=== PATIENT | male | born 1960 | race African-American/Black ===

== ENCOUNTER 2016-11-22 02:21 | Observation (INO) ==
[2016-11-22] MEDS ORDERED: SODIUM CHLORIDE 0.9% 1,200 ML IV ONE (02:54)
[2016-11-22] MEDS ORDERED: PIPERACILLIN/TAZOBACTAM 3,375 MG in SODIUM CHLORIDE 0.9% 100 ML IV STA (02:54)
[2016-11-22] MEDS ORDERED: SODIUM CHLORIDE 0.9% 1,000 ML IV SCH (03:00)
[2016-11-22] MEDS ORDERED: ACETAMINOPHEN 325 MG/10.15 ML UDCUP PO STA (03:27)
[2016-11-22] MEDS ORDERED: PIPERACILLIN/TAZOBACTAM 3,375 MG VIAL IV ONE (03:43)
[2016-11-22] MEDS ORDERED: ACETAMINOPHEN 325 MG/10.15 ML UDCUP ONE (03:44)
[2016-11-22 03:55] LABS: Basophils % 0.1 % (0.0-0.8); Hematocrit 27.6 VOL% (42.0-52.0); Hemoglobin 9.1 GM/DL (14.0-18.0); Immature Granulocytes % 0.4 %; Immature Granulocytes Absolute 0.04 #; Lymphocytes # 0.6 10*3/uL (1.4-4.0); Mean Corpuscular Hemoglobin 28 PG (27-34); Mean Corpuscular Volume 83.9 FL (87-102); Mean Platelet Volume 10.7 FL (9.6-12.0); Monocytes # 0.1 10*3/uL (0.11-0.8); Monocytes % 1.4 % (1.7-12.7); NRBC # 0.02 10*3/uL; Neutrophils # 9.2 10*3/uL (1.4-7.4); Neutrophils % 92.1 % (38.7-73.9); Platelet Count 199 T/CUMM (130-400); Red Blood Count 3.29 MC/CUMM (3.8-5.5); Red Cell Distribution Width 19.9 % (9.3-17.3)
[2016-11-22 04:16] LABS: Albumin 2.9 G/DL (3.4-5.0); Bilirubin,Total 1.4 MG/DL (0.2-1.0); Calcium 9.1 MG/DL (8.5-10.1); Osmolality,Calculated 282.4 MOS/KG (273-304); Potassium 3.4 MMOL/L (3.5-5.1); Total Protein 7.3 G/DL (6.4-8.3)
[2016-11-22 04:17] LABS: Lactic Acid 2.3 MMOL/L (0.4-2.0)
[2016-11-22 04:18] LABS: Band Neutrophils 8 % (0-10); Lymphocytes 9 % (20-55); Segmented Neutrophils 82 % (50-85)
[2016-11-22 04:19] LABS: Platelet Estimate Normal; Target Cells 1+
[2016-11-22 04:21] LABS: Elliptocytes Few; Helmet Cells Few; Hypochromasia 1+
[2016-11-22 04:22] LABS: Total Cells Counted 100
--- NOTE | 2016-11-22 05:14 | Emergency Department Note ---
Becky Joya Gwan, am scribing for, and in the presence of, Herve Ordoñez MD 02 :49. Smita Joya Charles R, MD, personally performed the services described in this documentation, ascribed by Cristhian Pena in my presence, and it is both accurate and complete . Arrival - Arrival Mode of Arrival: Ambulatory Source: Patient, Family, Old Records Reviewed, RN Notes Reviewed Time Seen by Provider: 11/22/16 02:26 - History of Present Illness HPI Narrative: Patient is a 56 y/o male with a PMHx of Stage 4 Colon CA who presents to the ED for further evaluation of fever. Patient is accompanied by family member who confirms that patient is actively on Hospice Care. Family continued to note that she was concerned about the patient's fever and she alerted Hospice Nurse who then instructed the family to report to ED. Family confirmed that patient is followed by Oncologist Dr. Lamb at [facility] and that he was last seen in [place] 3 weeks ago. Patient stated that he last received chemotherapy 2-3 weeks ago and that he was advised to stop chemotherapy. Family was educated on the ramifications of Hospice Care and that if the patient is admitted into the hospital then his Hospice Care will be revocated. Onset (ago): day(s) Consistency: constant Severity: severe Allergies/Adverse Reactions: Allergies Allergy/AdvReac Type Severity Reaction Status Date / Time No Known Allergies Allergy Unverified 10/15/16 21:15 Home Medications: Home Medications Medication Instructions Recorded Confirmed Type Unable To Obtain [Unable to Obtain] 10/15/16 11/22/16 History Review of System - Review of System 12 point system: reviewed and no additional remarkable complaints except as stated - Review of System Constitutional: Present: as per HPI, chills, fever Eyes: Absent: discharge, pain Respiratory: Absent: cough, wheezing Cardiovascular: Absent: chest pain, palpitations, edema Medical,Surgical,& Family Hx - Medical History Cardio: History of: Hypertension - Surgical History Abdominal Surgeries: Surgical HX of: Abdominal Surgery - Social History Smoking Status: Never smoker Exam Vital Signs: Vital Signs Temperature 103.2 F H 11/22/16 02:21 Pulse Rate 144 H 11/22/16 02:21 Respiratory Rate 26 H 11/22/16 02:21 Blood Pressure 130/88 11/22/16 02:21 O2 Sat by Pulse Oximetry 94 L 11/22/16 02:21 - General General appearance: alert, other (Patient appears terminally ill; global atrophy present) - Head Head exam: Absent: normal inspection - Eye Eye exam: Present: other (Bilateral sunken orbits) - ENT ENT exam: Present: mucous membranes dry - Neck Neck exam: Absent: full ROM - Chest Chest inspection: Present: symmetric chest wall rise - Cardiovascular Cardiovascular exam: Present: tachycardia - Abdominal Exam Abdominal exam: Present: other (Feeding tube present; Patent colostomy bag present) - Extremities Exam Extremities exam: Absent: full ROM - Back Exam Back exam: Absent: full ROM - Neurological Exam Neurological exam: Present: alert - Psychiatric Psychiatric exam: Present: other (Confused) - Skin Skin exam: Present: other (Patient has the appearece of being terminally ill with global atrophy present. ) Course Course Narrative: Patient will be admitted for comfort care measures for 24 hours given IV antibiotics to treat possible urinary tract infection fever and possibly right upper lobe aspiration pneumonia - Consultations Consultation #1: Hospitalist will admit patient Time: 06:14 Results - Labs CBC & BMP: 11/22/16 03:18 11/22/16 03:18 Lab Results: I have reviewed the patients labs Labs: Laboratory Tests 11/22/16 11/22/16 11/22/16 03:17 03:18 03:18 WBC 10.0 RBC 3.29 L Hgb 9.1 L Hct 27.6 L MCV 83.9 L RDW 19.9 H Plt Count 199 Neut % (Auto) 92.1 H Lymph % (Auto) 6.0 L [place] % (Auto) 1.4 L Neut # (Auto) 9.2 H Lymph # (Auto) 0.6 L [place] # (Auto) 0.1 L Lymphocytes 9 L Monocytes 1 L Sodium 140 Potassium 3.4 L Chloride 100 Carbon Dioxide 32 BUN 22 H Creatinine 0.60 L BUN/Creatinine Ratio 36.00 H Glucose 121 H Lactic Acid 2.3 H Magnesium 1.9 Total Bilirubin 1.40 H Alkaline Phosphatase 144 H Albumin 2.9 L Globulin 4.4 H Albumin/Globulin Ratio 0.6 L Critical Care Time Critical Care Time: Yes Total Critical Care Time: 60 Disposition Clinical Impression: Sepsis, Metastatic colon cancer, Failure to thrive, Debility, Fever, Possible aspiration pneumonia Case discussed with: patient, patient's family Disposition: Still a Patient Condition: Guarded Time of Disposition: 06:15
[2016-11-22 05:23] LABS: Apearance,Urine Slightly Hazy (Clear); Bilirubin,Urine Negative (Negative); Blood, Urine Small mg/dL (Negative); Glucose,Urine (UA) Negative (Negative); Hyaline Casts,Urine 1 /LPF (0-3); Ketones,Urine 20 mg/dL (Negative); Mucus,Urine Occasional /LPF (Occasional); Nitrite,Urine Negative (Negative); Protein,Urine 100 MG/DL; RBC,Urine 5 /HPF (0-4); Squamous Epithelial Cell,Urine Occasional /HPF (0-10); Urine Color Yellow (Yellow); Urine Specific Gravity 1.017 (1.001-1.035); WBC,Urine 4 /HPF (0-6)
--- NOTE | 2016-11-22 06:21 | Hospitalist History & Physical ---
Assessment and Plan (1) Dehydration Status: Acute Current Visit: Yes (2) Debility Status: Acute Current Visit: Yes (3) Failure to thrive Status: Acute Current Visit: Yes (4) Fever Status: Acute Current Visit: Yes (5) Sepsis Status: Acute Assessment and plan: Plan for this patient will be admitting him to our service. We will continue with IV antibiotics. Patient can have a clear liquid diet but family reports that it has to be suctioned out after he drinks it. IV fluids will be continued. Our plan is to discharge him tomorrow after 24 hours of IV fluids and antibiotics. Patient is a DNR. Current Visit: Yes History of Present Illness Chief complaint: Fever and decreased blood pressure History of present illness: Mr. Barakat is a 56 year old male with past medical history of stage IV colon cancer presents to our ER tonight. Patient is on hospice. He is no longer receiving active treatment. But he was brought up here at the recommendation of his hospice provider when he was having fever and low blood pressure. Patient had a workup in the emergency room and it was felt that he had a pneumonia. I was consulted to do an observation admit only. Home Medications Medication Instructions Recorded Confirmed Type Unable To Obtain [Unable to Obtain] 10/15/16 11/22/16 History Allergies Allergy/AdvReac Type Severity Reaction Status Date / Time No Known Allergies Allergy Unverified 10/15/16 21:15 Medical,Surgical,& Family Hx - Medical History Cardio: History of: Hypertension Gastrointestinal: History of: Gastrointestinal Cancer (Stage IV Colon CA with liver mets) - Surgical History Abdominal Surgeries: Surgical HX of: Abdominal Surgery - Family History Family History: Reports;: Family Cancer - Social History Smoking Status: Never smoker Frequency of Alcohol Use: None Type of Drug Use: None 12 point system: reviewed and no additional remarkable complaints except as stated Exam - Constitutional Vitals: Period Temp Pulse Resp BP Sys/Griffin Pulse Ox Last 24 Hr 103.2 F-103.2 F 144-144 26-26 130-130/88-88 94 - General General appearance: alert, other patient is cachectic and appears terminally ill - Head Head exam: Absent: normal inspection - Eye Eye exam: Present: other (Bilateral sunken orbits) - ENT ENT exam: Present: mucous membranes dry - Neck Neck exam: Absent: full ROM - Chest Chest inspection: Present: symmetric chest wall rise - Cardiovascular Cardiovascular exam: Present: tachycardia - Abdominal Exam Abdominal exam: Present: other patient has both a G-tube drain and colostomy - Extremities Exam Extremities exam: Absent: full ROM - Back Exam Back exam: Absent: full ROM - Neurological Exam Neurological exam: Present: alert - Psychiatric Psychiatric exam: Present: other (Confused) - Skin Skin exam: Present: other (Patient has the appearece of being terminally ill with global atrophy present. ) Results - Labs CBC & BMP: 11/22/16 03:18 11/22/16 03:18
[2016-11-22] MEDS ORDERED: LEVOFLOXACIN INJ 750 MG in PREMIX 1 EACH IV SCH (06:30)
[2016-11-22] MEDS: ALBUTEROL/IPRATROPIUM 3 ML NEB RESP TX SCH ×3 (07:05→19:36)
[2016-11-22] MEDS ORDERED: ENOXAPARIN 30 MG/0.3 ML SYRINGE ONE (07:22)
--- NOTE | 2016-11-22 08:21 | XRay Report ---
Portable chest Date: 11/22/2016 Clinical history: Fever, shortness of breath Comparison: 10/15/2016 Technique: Portable AP sitting chest Findings: The heart is normal in size. Progressive parenchymal findings in the right upper lobe with increased right hilar density. Persistent diffuse parenchymal findings in the right infrahilar location with possible small right pleural effusion. Persistent soft tissue mass effect in the left paramediastinal location. Nasogastric tube seen entering the stomach and projecting just below the GE junction. Degenerative changes are noted. Impression: Progressive pneumonia in the right upper lobe with associated atelectasis. There is persistent atelectasis in the left upper lobe with soft tissue mass effect in the left paramediastinal location. This finding could be related to mass/adenopathy. Additional residual infiltration/atelectasis in the right infrahilar location with smaller right pleural effusion. CT chest recommended for further evaluation. Nasogastric tube projecting in the stomach. Ideally the tube should be advanced further into the stomach. PROCEDURE INTERPRETED AT [facility] DEPARTMENT OF RADIOLOGY Final Report Signed by: Dr. Stacia Carrion
[2016-11-22] MEDS: MORPHINE 2 MG/1 ML SYRINGE IV PRN ×2 (10:58→16:39)
--- NOTE | 2016-11-22 17:14 | Discharge Summary ---
Hospital Course - Hospital Course Hospital Course: Mr. Angeles is a 56-year-old with a stage IV colon cancer and is on home hospice. He has also history of hypertension. He has a NG tube with suction and he is not able to eat the solid food but has been tolerating liquid diet at home. He developed fever at home with chills and shaking and the family got a little concerned and called the hospice nurse but unable to contact them. He was brought to the ER but was admitted for suspected pneumonia . he had temperature 103.2 documented in the ER his WBC count was 10 hemoglobin 9.1 hematocrit 27.6. His urinalysis did not show any nitrites and only 4 WBCs. Chest x-ray was consistent with the right upper lobe infiltrates associated with the atelectasis he was admitted and started on . Antibiotics he is on Levaquin 750 mg daily now initially he received dose of Zosyn. Await patient and family mentioned that he has to go back to home within 23 hours otherwise he will be discharged from hospice and will not be enrolled again for the same diagnosis. I have explained that if he has pneumonia he may not be need to be more monitored more but I do understand the dilemma here. I have talked about the goal of care and they want to pursue with the comfort care/hospice care at home. They want to continue p.o. antibiotics and I will give Levaquin dose for 1 week with the patient and family understanding that it may not be able to cure the pneumonia. At it is possible that his condition may get worse with this pneumonia or any other complication during the course of h terminal illness. After this long discussion patient is discharged to follow-up by his home hospice - Time spent with patient Time with patient DS: Less than 30 minutes Diagnosis - Discharge Diagnosis (1) Pneumonia Status: Acute Discharge Plan - Discharge Data Disposition: Hospice - Home Condition at Discharge: Undetermined Discharge Diet: advance to your usual diet Activity: resume usual activities as tolerated - Discharge Medications New Levofloxacin Tab [Levaquin Tab] 750 mg PO DAILY #7 tablet Continue amLODIPine [Norvasc] 5 mg PO DAILY Dexamethasone Inj [Decadron Inj] 4 mg SL BID Morphine Sulfate [Morphine Conc Liquid] 1 ml PO Q4H PRN PRN Reason: Pain LORazepam [Lorazepam Intensol] 1 mg PO Q4H PRN PRN Reason: Anxiety fentaNYL [Fentanyl 75 mcg/hr Patch] 1 patch TRANSDERM Q3DAY - Follow Up or Referral - Forms/Instructions Exam - Constitutional Vitals: Period Temp Pulse Resp BP Sys/Griffin Pulse Ox Last 24 Hr 97.0 F-103.2 F 96-144 19-26 116-130/83-88 94-99 General appearance: no acute distress, cachectic, other (Chronically) - Respiratory Respiratory exam: Present: other (Decreased air entry right sided anteriorly. Some coarse sounds on auscultation otherwise clear) - Cardiovascular Cardiovascular exam: Present: regular rate and rhythm. Absent: tachycardia - GI/Abdominal GI/Abdominal exam: Present: normal bowel sounds, distended, mass (Palpable mass in the upper abdomen), soft. Absent: guarding - Extremities Exam Extremities exam: Absent: edema - Neurological Exam Neurological exam: Present: alert, oriented X3 Discharge Results Procedures and tests throughout hospitalization: Pending Orders 11/22/16 03:18 Blood Culture Stat 11/22/16 03:49 Urine Culture Stat Labs on day of discharge: Labs from last 24 hours 11/22/16 11/22/16 11/22/16 08:31 03:49 03:18 WBC RBC Hgb Hct MCV MCH MCHC RDW Plt Count MPV Neut % (Auto) Lymph % (Auto) [place] % (Auto) Eos % (Auto) Baso % (Auto) Neut # (Auto) Lymph # (Auto) [place] # (Auto) Eos # (Auto) Baso # (Auto) Total Counted Immature Gran % Nucleated RBC % Immature Gran # Segmented Neutrophils Band Neutrophils Lymphocytes Monocytes Nucleated RBCs # Platelet Estimate Immature Plt Fraction Hypochromasia Target Cells Helmet Cells Elliptocytes Sodium 140 Potassium 3.4 L Chloride 100 Carbon Dioxide 32 Anion Gap 11.4 BUN 22 H Creatinine 0.60 L GFR Calculation 108 BUN/Creatinine Ratio 36.00 H Glucose 121 H Calculated Osmolality 282.4 Lactic Acid 1.5 2.3 H Calcium 9.1 Magnesium Total Bilirubin 1.40 H AST 27 ALT 21 Alkaline Phosphatase 144 H Total Protein 7.3 Albumin 2.9 L Globulin 4.4 H Albumin/Globulin Ratio 0.6 L Urine Color Yellow Urine Appearance Slightly hazy Urine pH 6.0 Ur Specific [place] 1.017 Urine Protein 100 Urine Glucose (UA) Negative Urine Ketones 20 Urine Blood Small Urine Nitrate Negative Urine Bilirubin Negative Urine Urobilinogen 2.0 H Urine Leukocytes Negative Urine RBC 5 Urine WBC 4 Ur Squamous Epith Cells Occasional Hyaline Casts 1 Urine Mucus Occasional Ur Culture Indicated? Ordered separately 11/22/16 11/22/16 03:18 03:17 WBC 10.0 RBC 3.29 L Hgb 9.1 L Hct 27.6 L MCV 83.9 L MCH 28 MCHC 33.0 RDW 19.9 H Plt Count 199 MPV 10.7 Neut % (Auto) 92.1 H Lymph % (Auto) 6.0 L [place] % (Auto) 1.4 L Eos % (Auto) 0.0 Baso % (Auto) 0.1 Neut # (Auto) 9.2 H Lymph # (Auto) 0.6 L [place] # (Auto) 0.1 L Eos # (Auto) 0.0 Baso # (Auto) 0.0 Total Counted 100 Immature Gran % 0.4 Nucleated RBC % 0.2 Immature Gran # 0.04 Segmented Neutrophils 82 Band Neutrophils 8 Lymphocytes 9 L Monocytes 1 L Nucleated RBCs # 0.02 Platelet Estimate Normal Immature Plt Fraction 0.0 Hypochromasia 1+ Target Cells 1+ Helmet Cells Few Elliptocytes Few Sodium Potassium Chloride Carbon Dioxide Anion Gap BUN Creatinine GFR Calculation BUN/Creatinine Ratio Glucose Calculated Osmolality Lactic Acid Calcium Magnesium 1.9 Total Bilirubin AST ALT Alkaline Phosphatase Total Protein Albumin Globulin Albumin/Globulin Ratio Urine Color Urine Appearance Urine pH Ur Specific [place] Urine Protein Urine Glucose (UA) Urine Ketones Urine Blood Urine Nitrate Urine Bilirubin Urine Urobilinogen Urine Leukocytes Urine RBC Urine WBC Ur Squamous Epith Cells Hyaline Casts Urine Mucus Ur Culture Indicated? DS: Provider Date of admission: 11/22/16 06:22 Primary care physician: . No PCP Attending physician on admission: Bharath Lee MD Consults: 11/22/16 08:31 Consult to Dietitian [CONS] Routine Reason for Dietitian: Other Discharging clinician: Abdi Edwards MD
[2016-11-22 17:39] VITALS: BP 145/81
== END 2016-11-22 20:00 | disposition hospice, home (50) ==
LOC: EDUNIT# → EDBD → N.ED 02:21 → N.EDINP 02:21 → SUATTDRO 06:22 → N.2E 07:49
PROVIDERS: ADMIT Internal Medicine; ATTEND Internal Medicine